=== PATIENT | male | born 1965 | race African-American/Black ===

== ENCOUNTER 2025-07-31 07:13 | Emergency (ER) | payer BC ==
[~2025-07-31] VITALS: Ht 175.3 cm; Wt 92.2 kg
[2025-07-31 07:15] VITALS: O2SAT 99
[2025-07-31] MEDS ORDERED: IBUP-2028 PO (08:23)
[2025-07-31] MEDS ORDERED: T3 PO (08:23)
[2025-07-31 08:33] VITALS: BP 138/74; PULSE 68; RESP 18; TEMP 36.9; O2SAT 100
== END 2025-07-31 08:42 | disposition home or self-care (01) ==
LOC: ER 07:13
DX: S49.91XA Unspecified injury of right shoulder and upper arm, initial encounter (principal); M54.12 Radiculopathy, cervical region; Z79.1 Long term (current) use of non-steroidal anti-inflammatories (NSAID); X58.XXXA Exposure to other specified factors, initial encounter; Y93.89 Activity, other specified; Y92.89 Other specified places as the place of occurrence of the external cause; Y99.8 Other external cause status
CPT/HCPCS: 73030; 99284